=== PATIENT | female | born 1995 | race Caucasian/White ===

== ENCOUNTER 2017-01-06 14:58 | Emergency (ER) | payer OTHER ==
[~2017-01-06] VITALS: Wt 46.0 kg
--- NOTE | 2017-01-06 15:26 | ERD ---
ER Documentation Chief Complaint Date/Time DATE: 01/06/17 TIME: 15:20 Chief Complaint dysuria and hematuria for the past few days.no back pain HPI 21-year-old otherwise healthy female presents to the emergency department with painful urination, hematuria for 4 days. Patient denies any back pain, discharge, abdominal pain, fever, chills, nausea, vomiting, or diarrhea. Patient notes that she has experienced UTIs in the past and states similar symptoms prior. Patient denies treating the pain with any Tylenol or Advil thus far. Patient denies any alleviating or exacerbating factors. Patient states at this time she feels urgency to go to the bathroom and reports a 10 out of 10 burning type of pain when attempting to urinate. Patient notes frequency. Patient denies any history of kidney disease or diabetes. Patient notes she is sexually active but states she is not . Last normal period was 1 month ago and normal for her. Patient denies sexual activity since that time. ROS All systems reviewed and are negative except as per history of present illness. Medications Home Meds Active Scripts Fluconazole* (Diflucan*) 150 Mg Tablet, 150 MG PO ONCE, #2 TAB Prov:JESSIKA CHANDLER PA-C 01/06/17 Ibuprofen* (Motrin*) 600 Mg Tab, 600 MG PO Q6H Y for PAIN for 5 Days, TAB Prov:JESSIKA CHANDLER PA-C 01/06/17 Phenazopyridine Hcl* (Pyridium*) 100 Mg Tab, 100 MG PO TID for 7 Days, TAB Prov:JESSIKA CHANDLER PA-C 01/06/17 Cephalexin* (Keflex*) 500 Mg Capsule, 500 MG PO QID for 7 Days, CAP Prov:JESSIKA CHANDLER PA-C 01/06/17 Physical Exam Vitals Vital Signs Date Time Temp Pulse Resp B/P Pulse Ox O2 Delivery O2 Flow Rate FiO2 01/06/17 15:10 99.9 85 20 12/73 99 Physical Exam Const: Well-developed, well-nourished, nontoxic appearing, well-hydrated, in no acute distress Head: Atraumatic, normocephalic Neck: Full range of motion..~ No meningismus. Resp: Clear to auscultation bilaterally Cardio: Regular rate and rhythm, no murmurs Abd: Soft, non tender, non distended. Normal bowel sounds, negative McBurney' s point tenderness, negative Linares sign, negative rebound tenderness, no peritoneal sign. Skin: No petechiae or rashes Back: No midline or flank tenderness Ext: No cyanosis, or edema Neur: Awake and alert Psych: Normal Mood and Affect Procedures/MDM Patient was seen and treated and flu track today. Otherwise healthy 21-year-old female presents with urgency, frequency, and dysuria 4 days. Vital signs are reviewed. Patient is afebrile, normotensive, non-hypoxic, non-tachycardic. Patient is well-appearing and nontoxic. Abdominal exam was normal. No right lower quadrant tenderness or rebound tenderness. No flank pain. Patient denies any history of fever, chills, vaginal discharge, nausea, vomiting, or diarrhea. At this time I have low suspicion for ectopic , ovarian torsion, tubo-ovarian abscess, small bowel obstruction, renal calculi, pelvic inflammatory disease, systemic bacteremia, or sepsis. Patient will be placed on Keflex. Patient to begin Motrin and Tylenol for pain symptoms. Patient will also be provided prescription for Pyridium. Based on patient's history of present illness and physical examination the decision was made to discharge. The patient was re-evaluated after ED treatment and stabilizing measures, and symptoms have improved. There is no evidence of life threatening injuries or illnesses at this time. On re-examination, patient resting in no distress, stable vital signs, reports feeling better and safe for discharge with outpatient follow up with PMD in 1-2 days. Patient given return precautions. Departure Diagnosis: Primary Impression: Frequency of urination Additional Impressions: Hematuria Dysuria JESSIKA CHANDLER PA-C Jan 06, 2017 15:26
[2017-01-06] MEDS ORDERED: PHEN-537 PO (15:29)
[2017-01-06] MEDS ORDERED: CEPH-443 PO (15:29)
[2017-01-06] MEDS ORDERED: IBUP-1542 PO (15:29)
[2017-01-06] MEDS ORDERED: FLUC150T17 PO (15:30)
== END 2017-01-06 17:05 | disposition home or self-care (01) ==
LOC: E/R 14:58
DX: R35.0 Frequency of micturition (principal); R30.0 Dysuria
CPT/HCPCS: 99284